=== PATIENT | male | born 1960 | race African-American/Black ===

== ENCOUNTER 2018-09-09 18:49 | Emergency (ER) | payer MEDICAID ==
[~2018-09-09] VITALS: Ht 182.9 cm; Wt 130.0 kg
[2018-09-09 19:39] VITALS: BP 188/115
== END 2018-09-09 22:00 | disposition left against medical advice (07) ==
LOC: ER 18:49
DX: Z53.21 Procedure and treatment not carried out due to patient leaving prior to being seen by health care provider (principal)